=== PATIENT | male | born 1960 | race Caucasian/White ===

== ENCOUNTER 2016-09-28 | Emergency (ER) | payer OTHER ==
[~2016-09-28] VITALS: Ht 167.6 cm; Wt 68.2 kg
[2016-09-28 01:07] VITALS: BP 127/70
== END 2016-09-28 01:09 | disposition home or self-care (01) ==
LOC: EMS 00:01
DX: S83.92XA Sprain of unspecified site of left knee, initial encounter (principal); F17.210 Nicotine dependence, cigarettes, uncomplicated; X58.XXXA Exposure to other specified factors, initial encounter; Y93.89 Activity, other specified; Y92.89 Other specified places as the place of occurrence of the external cause; Y99.8 Other external cause status
CPT/HCPCS: 99283